=== PATIENT | male | born 1960 | race Caucasian/White ===

== ENCOUNTER 2018-11-22 08:02 | Emergency (ER) | payer OTHER ==
[~2018-11-22] VITALS: Ht 170.2 cm; Wt 77.1 kg
[2018-11-22 09:01] VITALS: BP 144/74
[2018-11-22] MEDS ORDERED: cefTRIAXone SOD 1,000 MG VL IM ONE (09:15)
== END 2018-11-22 09:53 | disposition home or self-care (01) ==
LOC: ER 08:02
DX: L02.31 Cutaneous abscess of buttock (principal); R51 Headache; R42 Dizziness and giddiness
CPT/HCPCS: 96372; 99283; J0696